=== PATIENT | female | born 1975 | race Caucasian/White ===

== ENCOUNTER 2022-06-26 13:54 | Emergency (ER) | payer OTHER, SELFPAY ==
[2022-06-26 14:02] VITALS: BP 145/83; PULSE 98; RESP 18; TEMP 36.7; O2SAT 100
--- NOTE | 2022-06-26 15:16 | ED.URI ---
HPI - URI/Sore Throat General Chief Complaint: Upper Respiratory Infection Stated Complaint: productive cough, chest pain, body pain Time Seen by Provider: 06/26/22 15:16 Source: patient, RN notes reviewed and old records reviewed Mode of arrival: ambulatory Limitations: no limitations History of Present Illness HPI Narrative: 46 year old female who presents to [facility] care with complaints of productive cough of yellowish mucous, sinus drainage, body aches and also some dizziness which initially started on the 07 of June. Patient reports that cough has become worse at night with no fevers, sore throat,ear pain or any dyspnea or chest pain. Patient states that she has been taking Naproxen for her body aches. MD elicited complaint: cough, rhinorrhea and nasal congestion Pertinent past history: pneumonia and other (bronchitis) Onset (ago): week(s) (2.5) Pain scale (0-10): 6 Able to tolerate fluids by mouth: Yes Treatments prior to arrival: other (naproxen) Related Data Home Medications Medication Instructions Recorded Confirmed diltiazem HCl 120 mg tablet 120 mg PO DAILY 06/26/22 06/26/22 hydrochlorothiazide 25 mg tablet 25 mg PO DAILY 06/26/22 06/26/22 lisinopril 40 mg tablet 40 mg PO DAILY 06/26/22 06/26/22 Allergies Allergy/AdvReac Type Severity Reaction Status Date / Time aspirin Allergy Rash Verified 06/26/22 14:21 Review of Systems Review of Systems: CONSTITUTIONAL: Denies malaise, chills, sweats, or fever. EYES: Denies visual changes, redness, or discharge. ENT: Reports rhinorrhea, congestion, sinus pain, no otalgia or sore throat. CARDIOVASCULAR: Denies chest pain, palpitations, or edema. RESPIRATORY: Reports cough.? Denies dyspnea. GASTROINTESTINAL: Denies abdominal pain, nausea, vomiting, diarrhea SKIN: Denies rash or itching. MUSCULOSKELETAL:Reports myalgia. NEUROLOGIC: Denies headache. All systems reviewed & are unremarkable except as noted in HPI and below PMFSH Past Medical History Medical History (Updated 06/29/22 @ 11:09 by Jazz Bashir NP) Anemia Anxiety and depression Bronchitis Hypertension Kidney stones Pneumonia Surgical History Surgical History (Updated 06/29/22 @ 11:11 by Jazz Bashir NP) H/O lithotripsy ureteral stents also Previous section x3 Tubal ligation status Social History Social History (Updated 06/29/22 @ 11:06 by Jazz Bashir NP) Smoking status: Never smoker Alcohol intake: current Alcohol use details: social Substance use type: does not use Living arrangements: with family Gender identity (if verbalized by the patient): Female Comments At time of signature, agree with nursing past medical, surgical, social and family history. There is no relevant family history pertinent to the presenting complaint Exam Narrative: GENERAL: Well-appearing, well-nourished, and in no acute distress. HEAD: Normocephalic EYES: PERRLA, conjunctivae clear ENT: Nares clear, turbinates edematous and erythematous, clear yellow discharge. Mucous membranes moist. TM pearly kahn with dull light reflex bilaterally; no tragal tenderness. Oropharynx erythematous without lesions. Tonsils not enlarged and without exudate, no drooling, no hoarseness, no trismus, uvula midline.post nasal drainage NECK: Supple. No lymphadenopathy CHEST: Clear to auscultation, breath sounds equal. No wheezing, rhonchi, rales, or stridor. No respiratory distress, speaks in full sentences.loose cough, SAO2 100% on room air HEART: Regular rate and rhythm. No murmur heard. SKIN: Warm, dry, no rash. NEURO: Alert and oriented x3. PSYCH: Normal mood and affect Course Course Emergency Course: Patient is aware of diagnosis, understands and agrees to treatment plan.? Anticipatory guidance given.? Patient agrees to follow-up as directed and is aware of reasons to seek care at the emergency department. Portions of this record may have been creat
== END 2022-06-26 15:40 | disposition home or self-care (01) ==
PROVIDERS: Emergency Provider Registered Nurse
DX: J32.9 Chronic sinusitis, unspecified (principal); R05.1 Acute cough; I10 Essential (primary) hypertension
CPT/HCPCS: 99213; G0463